=== PATIENT | female | born 1995 | race Two or more races ===

== ENCOUNTER 2023-02-04 15:47 | Emergency (ER) | payer OTHER ==
[~2023-02-04] VITALS: Ht 162.6 cm; Wt 68.2 kg
[2023-02-04] MEDS ORDERED: LORazepam 2 MG/ML VIAL IVP ONE (18:30)
[2023-02-04] MEDS ORDERED: ONDANSETRON HCL 4 MG/2 ML VIAL IVP ONE (18:30)
[2023-02-04] MEDS ORDERED: SODIUM CHLORIDE 0.9% 1,000 ML IV ONE (18:30)
[2023-02-04 18:32] LABS: BASOPHILS % (AUTO) 0.2 % (0.0-2.0); EOSINOPHILS % (AUTO) 0.8 % (1.0-6.0); HEMOGLOBIN 9.8 g/dL (12.0-16.0); LYMPHOCYTES # (AUTO) 1.8 K/uL (1.0-4.8); LYMPHOCYTES % (AUTO) 21.8 % (22.0-44.0); MEAN CORPUSCULAR HEMOGLOBIN 20.3 pg (26.0-34.0); MEAN CORPUSCULAR HGB CONC 30.7 G/dL (31.0-37.0); MEAN CORPUSCULAR VOLUME 66 fL (80-100); MONOCYTES # (AUTO) 0.7 K/uL (0.1-1.0); MONOCYTES % (AUTO) 8.4 % (2.0-9.0); NEUTROPHILS # (AUTO) 5.8 K/uL (1.8-7.7); NEUTROPHILS % (AUTO) 68.8 % (40.0-70.0); PLATELET COUNT (AUTO) 449 K/uL (150-450); RED BLOOD CELL COUNT(AUTO) 4.84 MIL/uL (4.00-5.20); RED CELL DISTRIBUTION WIDTH 20.6 % (11.5-14.5)
[2023-02-04 18:40] LABS: ANION GAP 8 mmol/L (8-16); CALCIUM, TOTAL 9.3 mg/dL (8.8-10.5); CARBON DIOXIDE 28 mmol/L (22-29); CHLORIDE 101 mmol/L (98-107); CREATININE 0.69 mg/dL (0.60-1.30); GLOMERULAR FILTR. RATE CALC > 60 mL/min (>60); GLUCOSE,RANDOM 92 mg/dL (70-110); POTASSIUM 3.8 mmol/L (3.5-5.1); SODIUM SERUM 137 mmol/L (136-145); UREA NITROGEN, BLOOD 13 mg/dL (7-18)
[2023-02-04 18:46] LABS: ALANINE AMINOTRANSFERASE 20 U/L (12-78); ALKALINE PHOSPHATASE 99 U/L (46-116); ASPARTATE AMINOTRANSFERASE 19 U/L (15-37); BILIRUBIN,TOTAL 0.2 mg/dL (0.1-1.0); LIPASE 74 U/L (73-393); TOTAL PROTEIN, SERUM 7.9 g/dL (6.4-8.2)
[2023-02-04 19:45] VITALS: BP 125/80
[2023-02-04] MEDS ORDERED: LIB25 PO (19:49)
[2023-02-04 20:06] LABS: APPEARANCE,URINE CLEAR (CLEAR); BILIRUBIN,URINE NEGATIVE (NEGATIVE); GLUCOSE, URINE (UA) NEGATIVE (NEGATIVE); KETONES,URINE TRACE mg/dL (NEGATIVE); LEUKOCYTE ESTERASE ,URINE NEGATIVE (NEGATIVE); NITRATE,URINE NEGATIVE (NEGATIVE); OCCULT BLOOD,URINE LARGE (NEGATIVE); PH,URINE 6.5 (5.0-8.0); PROTEIN,URINE NEGATIVE (NEGATIVE); SPECIFIC GRAVITIY, URINE 1.024 (1.003-1.030); UROBILINOGEN,URINE <=1.0 mg/dL (<=1.0)
[2023-02-04 20:21] LABS: BACTERIA,URINE Rare /HPF (None Seen); RBC,URINE 26-50 /HPF (0-2); SQUAMOUS EPITHELIAL CELL,UR Few /LPF (None Seen)
[2023-02-04 20:26] LABS: AMPHET/METH SCREEN,URINE POSITIVE (NEGATIVE); BARBITURATE SCREEN, URINE NEGATIVE (NEGATIVE); BENZODIAZEPINES SCREEN,URINE NEGATIVE (NEGATIVE); CANNABINOID SCREEN,URINE POSITIVE (NEGATIVE); COCAINE SCREEN,URINE NEGATIVE (NEGATIVE); METHADONE SCREEN, URINE NEGATIVE (NEGATIVE); OPIATE SCREEN,URINE NEGATIVE (NEGATIVE); PHENCYCLIDINE SCREEN,URINE NEGATIVE (NEGATIVE)
== END 2023-02-04 20:03 | disposition still patient (30) ==
LOC: EMS 15:56
DX: S02.2XXA Fracture of nasal bones, initial encounter for closed fracture (principal); F10.139 Alcohol abuse with withdrawal, unspecified; D64.9 Anemia, unspecified; F12.90 Cannabis use, unspecified, uncomplicated; X58.XXXA Exposure to other specified factors, initial encounter; Y93.89 Activity, other specified; Y92.89 Other specified places as the place of occurrence of the external cause; Y99.8 Other external cause status; Y90.9 Presence of alcohol in blood, level not specified
CPT/HCPCS: 99284; 96374; 96361; 96375; 80053; 83690; 83735; 84703; 85025; 36415; 81001; 80307 ×2; G0480; J2060; J2405; J7030

== ENCOUNTER 2023-11-22 13:31 | Emergency (ER) | payer OTHER ==
[~2023-11-22] VITALS: Ht 160 cm; Wt 63.6 kg
[~2023-11-22 13:31] MED LIST: CHLO25CA6 PO
[2023-11-22 13:42] VITALS: TEMP 98.4
[2023-11-22] MEDS ORDERED: TraMADol HCL 50 MG TABLET PO ONE (15:15)
[2023-11-22] MEDS ORDERED: KETOROLAC TROMETHAMINE 30 MG/ML VIAL IM ONE (15:15)
[2023-11-22] MEDS ORDERED: AMOX250C4 PO (15:20)
[2023-11-22 16:47] VITALS: BP 128/79; PULSE 94; RESP 18
== END 2023-11-22 16:48 | disposition home or self-care (01) ==
LOC: EMS 13:31
DX: K02.9 Dental caries, unspecified (principal); F10.20 Alcohol dependence, uncomplicated; F12.90 Cannabis use, unspecified, uncomplicated
CPT/HCPCS: 99283; 84703; 36415; 96372; J1885

== ENCOUNTER 2025-08-29 06:23 | Emergency (ER) | payer OTHER ==
[~2025-08-29] VITALS: Ht 157.5 cm; Wt 65.9 kg
[~2025-08-29 06:23] MED LIST changes: +AMOX250C4 PO; -CHLO25CA6 PO
[2025-08-29 06:28] VITALS: BP 138/82; PULSE 128; RESP 14; TEMP 98.1; O2SAT 100
[2025-08-29] MEDS ORDERED: ACET-2247 PO (06:43)
[2025-08-29] MEDS ORDERED: AMOX-457 PO (06:43)
[2025-08-29] MEDS ORDERED: IBUP-1492 PO (06:43)
[2025-08-29] MEDS: ACETAMINOPHEN 325 MG TABLET PO ONE (07:03)
[2025-08-29] MEDS: AMOX TR/POT CLAV 875 MG/125 MG TABLET PO ONE (07:03)
[2025-08-29] MEDS: KETOROLAC TROMETHAMINE 30 MG/ML VIAL IM ONE (07:03)
== END 2025-08-29 07:22 | disposition home or self-care (01) ==
LOC: EMS 06:23
DX: K02.9 Dental caries, unspecified (principal); F12.90 Cannabis use, unspecified, uncomplicated; F10.20 Alcohol dependence, uncomplicated; Z79.899 Other long term (current) drug therapy; Y90.9 Presence of alcohol in blood, level not specified
CPT/HCPCS: 99283; 96372; J1885